=== PATIENT | female | born 1965 | race Caucasian/White ===

== ENCOUNTER → 2021-08-18 | Outpatient (CLI) | payer OTHER ==
[~2021-08-18] MED LIST: BUSPIRONE HCL15 MG PO; CYANOCOBAL1000 MCG/1 INJ; EMERGEN-C 500500 MG PO; IBU600 MG PO; KEFLEX CAP 500500 MG PO; LEXAPRO20 MG PO; NORCO 7.5-3251 EACH PO; NORVASC10 MG PO
== END ==
LOC: KOH-I 10:29
DX: M25.572 Pain in left ankle and joints of left foot (principal); M19.071 Primary osteoarthritis, right ankle and foot
CPT/HCPCS: 73610

== ENCOUNTER → 2021-09-03 | Outpatient (CLI) | payer OTHER | LOC: EMI 08-27 10:00 | DX: M93.272 Osteochondritis dissecans, left ankle and joints of left foot (principal); M25.572 Pain in left ankle and joints of left foot; M19.072 Primary osteoarthritis, left ankle and foot | CPT/HCPCS: 73721 ==

== ENCOUNTER → 2021-11-13 | Outpatient (CLI) | payer OTHER | LOC: KOH-I 08:05 | DX: Z01.818 Encounter for other preprocedural examination (principal); M79.605 Pain in left leg | CPT/HCPCS: 93926 ==

== ENCOUNTER → 2021-12-30 | Outpatient (CLI) | payer OTHER ==
[~2021-12-30] MED LIST changes: +CLEOCIN HCL300 MG PO; +DICLOFENAC GEL 1% TOP; +FLUTICASONE SPRAY; +HYDROXYZINE HCL50 MG PO; +IBU800 MG PO; +LIPITOR10 MG PO; +PROTONIX40 MG PO; +VITAMIN B-121000 MC3 PO; +VITAMIN D21250 MCG PO
[2021-12-30 11:14] LABS: HEMOGLOBIN 13.8 gm/dl (12.3-15.3); RED BLOOD COUNT 4.46 M/UL (4.00-5.10); WHITE BLOOD COUNT 10.7 K/UL (4.5-11.0)
[2021-12-30 11:28] LABS: BUN/CREATININE RATIO 15 (0-10)
== END ==
LOC: OPSV2 10:00
PROVIDERS: Podiatrist Foot & Ankle Surgery
DX: Z01.818 Encounter for other preprocedural examination (principal); M19.072 Primary osteoarthritis, left ankle and foot; R94.31 Abnormal electrocardiogram [ECG] [EKG]
CPT/HCPCS: 36415; 80048; 85027; 93005

== ENCOUNTER 2022-01-03 11:28 | Emergency (ER) | payer OTHER ==
[~2022-01-03 11:28] MED LIST changes: -CLEOCIN HCL300 MG PO
[2022-01-03 12:00] LABS: HEMOGLOBIN 12.2 gm/dl (12.3-15.3); RED BLOOD COUNT 3.99 M/UL (4.00-5.10); WHITE BLOOD COUNT 22.4 K/UL (4.5-11.0)
[2022-01-03 12:20] LABS: BUN/CREATININE RATIO 18 (0-10)
[2022-01-03] MEDS ORDERED: CLEOCIN HCL300 MG PO (12:47)
== END 2022-01-03 12:53 | disposition home or self-care (01) ==
LOC: ER1 11:28
PROVIDERS: Nurse Practitioner
DX: L27.0 Generalized skin eruption due to drugs and medicaments taken internally (principal); T36.1X5A Adverse effect of cephalosporins and other beta-lactam antibiotics, initial encounter; F17.210 Nicotine dependence, cigarettes, uncomplicated; Z88.0 Allergy status to penicillin
CPT/HCPCS: 80053; 85025; 93005; 96374; 96375; 99283; J1100; J1200

== ENCOUNTER → 2022-01-08 | Outpatient (CLI) | payer OTHER ==
[~2022-01-08] MED LIST changes: +CLEOCIN HCL300 MG PO
== END ==
LOC: KOH-I 08:55
DX: M25.572 Pain in left ankle and joints of left foot (principal)
CPT/HCPCS: 73610; 73630

== ENCOUNTER → 2022-02-16 | Outpatient (CLI) | payer OTHER | LOC: KOH-I 13:30 | DX: S92.252D Displaced fracture of navicular [scaphoid] of left foot, subsequent encounter for fracture with routine healing (principal); S92.102D Unspecified fracture of left talus, subsequent encounter for fracture with routine healing; X58.XXXD Exposure to other specified factors, subsequent encounter; Z98.1 Arthrodesis status; M19.072 Primary osteoarthritis, left ankle and foot | CPT/HCPCS: 73630 ==

== ENCOUNTER → 2022-03-03 | Outpatient (CLI) | payer OTHER | LOC: KOH-I 10:21 | DX: M79.672 Pain in left foot (principal); Z98.1 Arthrodesis status | CPT/HCPCS: 73630 ==

== ENCOUNTER → 2022-04-02 | Outpatient (CLI) | payer OTHER | LOC: KOH-I 09:10 | DX: Z98.1 Arthrodesis status (principal) | CPT/HCPCS: 73630 ==

== ENCOUNTER → 2022-06-09 | Outpatient (CLI) | payer OTHER | LOC: KOH-I 11:04 | DX: M79.672 Pain in left foot (principal); Z98.1 Arthrodesis status | CPT/HCPCS: 73630 ==

== ENCOUNTER → 2022-07-21 | Outpatient (CLI) | payer OTHER | LOC: KOH-I 08:55 | DX: M79.672 Pain in left foot (principal) | CPT/HCPCS: 73630 ==